=== PATIENT | female | born 1985 | race Caucasian/White ===

== ENCOUNTER 2021-07-12 23:30 | Inpatient (IN) ==
[~2021-07-12 23:30] MED LIST: *HR* Nalbuphine 10 MG/ML AMPUL IV PRN; Azithromycin 500 MG in 0.9 % Sodium Chloride 250 ML IVPB PRN; Famotidine 20 MG/2 ML VIAL IVP PRN; Metoclopramide 10 MG/2 ML VIAL IVP PRN; Naloxone 0.4 MG/ML INJ IVP PRN; Ondansetron 4 MG/2 ML VIAL IVP PRN; Ringers Solution, Lactated 1,000 ML ONE
[2021-07-12] MEDS: Ringers Solution, Lactated 1,000 ML IVC SCH (23:52)
[2021-07-13 00:03] LABS: Amphetamine Screen,Urine Negative ng/mL (Cutoff=1000); Barbiturate Screen,Urine Negative ng/mL (Cutoff=200); Benzodiazepines Screen,Urine Negative ng/mL (Cutoff=200); Cannabinoid Screen,Urine Negative ng/mL (Cutoff = 50); Cocaine Screen,Urine Negative ng/mL (Cutoff= 300); Opiate Screen,Urine Negative ng/mL (Cutoff=300); Phencyclidine Screen,Urine Negative ng/mL (Cutoff=25)
[2021-07-13 00:07] LABS: Basophils % 0.2 %; Eosinophils % 0.4 %; Immature Granulocytes % 0.4 % (0-4); Monocytes % 6.2 %
[2021-07-13 00:08] LABS: Hematocrit 36.9 % (35.3-44.9); Hemoglobin 12.2 g/dL (11.5-15.4); Immature Platelets 27.1 % (1.1-6.1); Lymphocytes # 1.9 K/mcL (0.6-4.6); Lymphocytes % 17.7 %; Mean Corpuscular HGB Conc 33.1 g/dL (31.6-35.5); Mean Corpuscular Hemoglobin 29.1 pg (28.0-33.3); Mean Corpuscular Volume 88.1 fL (83.0-100.0); Monocytes # 0.7 K/mcL (0.0-1.3); Platelet Count 161 K/mcL (140-400); Red Blood Count 4.19 M/mcL (3.82-4.97); Red Cell Distribution Width 12.6 % (11.5-14.5); Segmented Neutrophils % 75.1 %; White Blood Count 10.6 K/mcL (4.3-11.1)
[2021-07-13] MEDS ORDERED: Epidural Premix (fent/bupiv) 110 ML EP ONE (00:50)
[2021-07-13] MEDS ORDERED: Ropivacaine/PF 0.2% 20 ML VIAL ONE (00:50)
[2021-07-13] MEDS ORDERED: *HR* FentaNYL (PF) 100 MCG/2 ML VIAL ONE ×3 (00:50→06:36)
[2021-07-13] MEDS ORDERED: EPHEDrine 50 MG/ML VIAL IVP PRN (01:25)
[2021-07-13] MEDS ORDERED: Epidural Premix (fent/bupiv) 110 ML EP SCH (01:30)
[2021-07-13] MEDS: Ringers Solution, Lactated 1,000 ML IVC SCH (02:22)
[2021-07-13] MEDS ORDERED: Famotidine 20 MG/2 ML VIAL IVP ONE (02:23)
[2021-07-13] MEDS ORDERED: Lidocaine/EPI 1:200k 2% PF 20 ML VIAL ONE (06:12)
[2021-07-13] MEDS ORDERED: Oxytocin 20 units/ LR 1000 mL 20 UNIT/1,000 ML BAG IVC ONE ×2 (06:31→08:23)
[2021-07-13] MEDS ORDERED: Ondansetron 4 MG/2 ML VIAL ONE (06:34)
[2021-07-13] MEDS ORDERED: Acetaminophen IV 1,000 MG/100 ML BAG IVPB ONE (06:40)
[2021-07-13] MEDS ORDERED: Ketorolac 30 MG/ML VIAL ONE (06:56)
[2021-07-13] MEDS ORDERED: CeFAZolin 2,000 MG/120 ML BAG IVPB ONE (07:00)
[2021-07-13] MEDS ORDERED: *HR* Morphine Sulfate/PF 10 MG/10 ML AMPUL ONE (07:10)
[2021-07-13] MEDS ORDERED: Metoclopramide 10 MG/2 ML VIAL IVP PRN (10:02)
[2021-07-13] MEDS ORDERED: Rho Immune Globulin 1,500 UNIT SYRINGE IM ONE (10:02)
[2021-07-13] MEDS ORDERED: Oxytocin 20 units/ LR 1000 mL 20 UNIT/1,000 ML BAG IVC SCH (10:02)
[2021-07-13] MEDS ORDERED: Simethicone 80 MG TAB.CHEW PO PRN (10:02)
[2021-07-13] MEDS ORDERED: Ondansetron 4 MG/2 ML VIAL IVP PRN (10:02)
[2021-07-13] MEDS ORDERED: Ketorolac 30 MG/ML VIAL IVP ONE (13:00)
[2021-07-13] MEDS: *HR* OxyCODONE Immed Rel 5 MG TABLET PO PRN (16:10)
[2021-07-13] MEDS: Acetaminophen 325 MG TABLET PO SCH ×2 (16:10→21:22)
[2021-07-13] MEDS: metroNIDAZOLE 500 MG TABLET PO SCH ×2 (16:11→21:20)
[2021-07-13] MEDS: cephALEXin 500 MG CAPSULE PO SCH ×2 (16:11→21:20)
[2021-07-13] MEDS: Ibuprofen 600 MG TABLET PO SCH (21:21)
[2021-07-14] MEDS: Ibuprofen 600 MG TABLET PO SCH ×3 (03:37→19:34)
[2021-07-14] MEDS: *HR* OxyCODONE Immed Rel 5 MG TABLET PO PRN ×2 (03:37→14:50)
[2021-07-14] MEDS: Acetaminophen 325 MG TABLET PO SCH ×3 (03:37→19:34)
[2021-07-14 03:58] LABS: Basophils % 0.1 %; Eosinophils # 0.1 K/mcL (0.0-0.6); Eosinophils % 0.7 %; Hematocrit 22.3 % (35.3-44.9); Immature Granulocytes % 0.4 % (0-4); Lymphocytes # 1.4 K/mcL (0.6-4.6); Lymphocytes % 15.6 %; Mean Corpuscular HGB Conc 33.2 g/dL (31.6-35.5); Mean Corpuscular Hemoglobin 30.5 pg (28.0-33.3); Mean Corpuscular Volume 91.8 fL (83.0-100.0); Mean Platelet Volume 13.6 fL (9.4-12.4); Monocytes # 0.6 K/mcL (0.0-1.3); Monocytes % 6.7 %; Platelet Count 112 K/mcL (140-400); Red Blood Count 2.43 M/mcL (3.82-4.97); Red Cell Distribution Width 12.9 % (11.5-14.5); Segmented Neutrophils % 76.5 %; White Blood Count 9.2 K/mcL (4.3-11.1)
[2021-07-14 03:59] LABS: Hemoglobin 7.4 g/dL (11.5-15.4)
[2021-07-14] MEDS: metroNIDAZOLE 500 MG TABLET PO SCH ×3 (08:18→19:34)
[2021-07-14] MEDS: Prenatal Vit/FA 1 EACH TABLET PO SCH (08:18)
[2021-07-14] MEDS: cephALEXin 500 MG CAPSULE PO SCH ×3 (08:18→19:34)
[2021-07-15] MEDS: *HR* OxyCODONE Immed Rel 5 MG TABLET PO PRN (00:58)
[2021-07-15] MEDS: Ibuprofen 600 MG TABLET PO SCH ×2 (05:46→12:00)
[2021-07-15] MEDS: Acetaminophen 325 MG TABLET PO SCH ×2 (05:47→12:00)
[2021-07-15 06:51] LABS: Basophils % 0.3 %; Eosinophils # 0.2 K/mcL (0.0-0.6); Eosinophils % 2.4 %; Hematocrit 22.4 % (35.3-44.9); Hemoglobin 7.2 g/dL (11.5-15.4); Immature Granulocytes % 0.7 % (0-4); Lymphocytes # 1.8 K/mcL (0.6-4.6); Lymphocytes % 20.7 %; Mean Corpuscular HGB Conc 32.1 g/dL (31.6-35.5); Mean Corpuscular Hemoglobin 29.6 pg (28.0-33.3); Mean Corpuscular Volume 92.2 fL (83.0-100.0); Monocytes # 0.5 K/mcL (0.0-1.3); Monocytes % 5.5 %; Neutrophils # 6.2 K/mcL (1.6-8.9); Platelet Count 130 K/mcL (140-400); Red Blood Count 2.43 M/mcL (3.82-4.97); Red Cell Distribution Width 13.2 % (11.5-14.5); Segmented Neutrophils % 70.4 %; White Blood Count 8.9 K/mcL (4.3-11.1)
[2021-07-15 07:51] VITALS: BP 115/76; PULSE 84; TEMP 97.5; O2SAT 100
[2021-07-15] MEDS: Prenatal Vit/FA 1 EACH TABLET PO SCH (08:54)
== END 2021-07-15 16:10 | disposition home or self-care (01) | DRG 787 ==
LOC: 1NENULAB → 1NENUOBS 07-13 09:56
PROVIDERS: ADMIT Advanced Practice Midwife; ATTEND Advanced Practice Midwife